=== PATIENT | female | born 1955 | race Caucasian/White ===

== ENCOUNTER 2024-03-09 08:23 | Day surgery (SDC) | payer MEDICARE, SELFPAY ==
[2024-03-05 13:49] VITALS: BMI 31.3
[2024-03-09 09:28] VITALS: BMI 30.4
[2024-03-09 09:32] VITALS: BP 141/74; PULSE 75; RESP 18; TEMP 36.9; O2SAT 95
--- NOTE | 2024-03-09 09:46 | P.CONAN_ITS ---
HPI - Anesthesia Eval Consult details Narrative: colon screen [facility] Past Medical History Medical History Adenomyosis of uterus Chronic constipation DJD (degenerative joint disease) Family History Family history of problems with anesthesia: No Surgical History Surgical History History of hysterectomy with unilateral oophorectomy H/O colonoscopy History of Problems with Anesthesia: No Social History Social History Are you a primary personal care assistant to a significant other at home: No Do you presently have visiting nurse or other home services: No Patient Tobacco Use Status: Never used Tobacco Use of substances other than those prescribed or required for medical reasons: No Are you DNR?: No Advance Directives: No Advance Directives Information Provided: Yes Recently lost weight without trying: No Nutrition Risks: No Nutritional Risk Meds Allergies Allergy/AdvReac Type Severity Reaction Status Date / Time levofloxacin [From Levaquin] Allergy Unknown Verified 03/05/24 13:44 metronidazole [From Flagyl] Allergy Unknown Verified 03/05/24 13:44 Active Medications: Current Medications Lactated Ringer's (Lr) 1,000 mls @ 100 mls/hr IVCONT .Q10H HIRA Home Medications ?Medication ?Instructions ?Recorded ?Confirmed ?Last Taken ?Type cholecalciferol (vitamin D3) 10 20 mcg PO DAILY 03/05/24 03/05/24 Unknown History mcg (400 unit) capsule (Vitamin D3) estradiol 0.025 mg/24 hr weekly 1 patch QWEEK 03/05/24 03/05/24 Unknown History transdermal patch meloxicam 15 mg tablet 15 mg PO DAILY 03/05/24 03/05/24 Unknown History multivitamin 1 tab PO DAILY 03/05/24 03/05/24 Unknown History Exam Height,Weight and Vital Signs: Height 5 ft 2 in Weight 75.353 kg Last Vital Signs Temp 98.4 F 03/09/24 09:32 Pulse 75 03/09/24 09:32 Resp 18 03/09/24 09:32 BP 141/74 H 03/09/24 09:32 Pulse Ox 95 03/09/24 09:32 O2 Del Method Room Air 03/09/24 09:32 Airway Mallampati Class: II TM Dist: >3cm Neck ROM: Full Heart: rrr Lungs: cta Assessment and Plan Assessment Anesthesia Assessment: Anesthesia Plan Discussed Final Anesthetic Review Family History of Problems with Anesthesia: No History of Problems with Anesthesia: No NPO: Yes ASA Class: II Final Preanesthetic Review: No Changes in Pt Med Stat, Meds/Allgs Chart Reviewed, Consent Obtained/Reviewed and Anes Risks/Benef Reviewed Patient Risk: Intermediate Procedure Risk: Low Anesthetic Plan Anesthetic Plan: MAC: Disposition: Standard PACU
[2024-03-09] MEDS: Lactated Ringers 1,000 ML 100 ML IVCONT (09:47)
--- NOTE | 2024-03-09 10:11 | MHC.SHP ---
Pre-Procedural Eval Section A - 24 Hr Update-Section A only Date of Service: 03/09/24 Section B - Complete if H&P > 30 days Chief Complaint: Encounter for screening for malignant neoplasm of Details of Present Illness: see H&P no changes Relevant Family History (Specify if Yes): No Relevant Social History: None Present Medications: see Short Stay Collaborative assessment Medical History: No relevant PMH History of Previous Operations: No relevant previous surgery Allergies: Allergies Allergy/AdvReac Type Severity Reaction Status Date / Time levofloxacin [From Levaquin] Allergy Unknown Verified 03/05/24 13:44 metronidazole [From Flagyl] Allergy Unknown Verified 03/05/24 13:44 Review of Systems Sugical H&P ROS: Negative: Constitution, Cardiovascular, Respiratory, Neurological, Psychiatric, Hem-Onc, Allergic/Immunologic, Gastrointestinal, Genitourinary, Musculoskeletal, Integumentary, Endocrine and Eyes/Ears/Nose/Throat Exam Surgical H&P Exam: Normal: HEENT, Normal: Heart, Normal: Lungs, Normal: Extremities, Normal: Abdomen, Normal: Skin and Normal: Neurological Plan Diagnosis/Plan: Unchanged I have reviewed the history and physical and performed a pertinent physical examination on my patient. No changes have occurred unless specified. Time Spent With Patient Time: Total time managing care of this patient today ____ minutes.
--- NOTE | 2024-03-09 10:45 | P.BOP_ITS ---
Brief Operative Note Date of Service: 03/09/24 Pre-op diagnosis: screening Post-op diagnosis: same Procedure: colonoscopy Surgeon: Mina Mcgill MD Anesthesia: MAC Was an Embossing Machine Operator Helper used for this Procedure?: No Estimated blood loss (mL): 0 Pathology: none sent Condition: stable Disposition: PACU
[2024-03-09 10:48] VITALS: BP 102/54; PULSE 85; RESP 16; TEMP 36.9; O2SAT 96
[2024-03-09 11:03] VITALS: BP 108/70; PULSE 76; RESP 16; O2SAT 94
--- NOTE | 2024-03-09 11:09 | OP_ITS ---
DATE OF SERVICE: 03/09/2024 SURGEON: Mina Mcgill MD INDICATIONS: Colon cancer screening. PREOPERATIVE DIAGNOSIS: POSTOPERATIVE DIAGNOSIS: PROCEDURE PERFORMED: Colonoscopy to the terminal ileum. ESTIMATED BLOOD LOSS: COMPLICATIONS: ANESTHESIA: Monitored anesthesia care. ASSISTANTS: SPECIMENS: DESCRIPTION OF PROCEDURE: A history and physical were performed. The risks and benefits of the procedure were explained to the patient. Informed consent was obtained. The patient was placed in the left lateral decubitus position. A digital rectal exam was performed and was found to be normal. The Olympus pediatric video colonoscope was introduced into the rectum and advanced to the cecum. The cecum was identified by transillumination, palpation, and identification of ileocecal valve. Examination was performed, and the scope was removed. She tolerated the procedure well and was taken to recovery area in stable condition. FINDINGS: The terminal ileum was examined and appeared normal. The visualized colonic mucosa was normal. The quality of the prep was good. No polyps were identified. Retroflexed examination showed small internal hemorrhoids. IMPRESSION: Normal colonoscopy. RECOMMENDATION: 1. Follow up as needed. 2. Repeat colonoscopy is recommended in 10 years for average-risk individuals. MD WHITNEY Purvis/JONNY / [phone]
[2024-03-09 11:28] VITALS: BP 127/54; PULSE 72; RESP 16; TEMP 37; O2SAT 97
== END 2024-03-09 11:40 | disposition home or self-care (01) ==
PROVIDERS: PCP Internal Medicine; Visit Provider Internal Medicine Gastroenterology
PROC: 0DJD8ZZ Inspection of Lower Intestinal Tract, Via Natural or Artificial Opening Endoscopic (ICD-10-PCS; CPT 45378; principal; 2024-03-09 10:10)
DX: Z12.11 Encounter for screening for malignant neoplasm of colon (principal); K64.8 Other hemorrhoids; Z83.719 Family history of colon polyps, unspecified; K59.09 Other constipation; N80.03 Adenomyosis of the uterus; M19.90 Unspecified osteoarthritis, unspecified site; Z79.899 Other long term (current) drug therapy; Z79.1 Long term (current) use of non-steroidal anti-inflammatories (NSAID)
CPT/HCPCS: G0105; J2704